=== PATIENT | female | born 1950 | race Two or more races ===

== ENCOUNTER 2021-01-27 06:18 | Emergency (ER) | payer OTHER ==
[~2021-01-27] VITALS: Ht 152.4 cm; Wt 57.6 kg
[2021-01-27] MEDS ORDERED: LANTUS SOL100 UNIT/1 (06:37)
[2021-01-27] MEDS ORDERED: DICY20TA (06:37)
[2021-01-27] MEDS ORDERED: TOPROL XL50 M1 (06:37)
[2021-01-27] MEDS ORDERED: NOVOLOG100 UNIT/1 (06:37)
[2021-01-27] MEDS ORDERED: GRALISE600 MG (06:38)
[2021-01-27] MEDS ORDERED: BUSPIRONE HCL7.5 MG (06:38)
[2021-01-27] MEDS ORDERED: LEVOXYL137 MCG (06:38)
[2021-01-27] MEDS ORDERED: PANTOPRAZOLE SO20 MG (06:38)
[2021-01-27] MEDS ORDERED: RANEXA500 MG (06:38)
[2021-01-27] MEDS ORDERED: KETO10TA2 PO (13:06)
[2021-01-27] MEDS ORDERED: NORFLEX100MG PO (13:06)
[2021-01-27] MEDS ORDERED: PERCOCET 5-3251 EACH PO (13:06)
== END 2021-01-27 13:22 | disposition home or self-care (01) ==
LOC: ER 06:18
DX: M54.5 Low back pain (principal); R10.32 Left lower quadrant pain; E11.65 Type 2 diabetes mellitus with hyperglycemia; Z79.4 Long term (current) use of insulin